=== PATIENT | female | born 1975 | race Caucasian/White ===

== ENCOUNTER 2017-07-07 06:53 | Day surgery (SDC) | payer OTHER ==
[2017-07-07] MEDS: NS 1,000 ML IV (07:00)
[2017-07-07] MEDS ORDERED: LIDOCAINE 2% INJ 100 MG/5 ML SDV (FOR ANES.) As Ordered (07:19)
[2017-07-07] MEDS ORDERED: PROPOFOL 200 MG/20 ML VIAL As Ordered ×2 (07:19)
== END 2017-07-07 08:44 | disposition home or self-care (01) ==
LOC: M OPP 06:53
DX: Z12.11 Encounter for screening for malignant neoplasm of colon (principal); Z80.0 Family history of malignant neoplasm of digestive organs; K64.0 First degree hemorrhoids; R12 Heartburn; K44.9 Diaphragmatic hernia without obstruction or gangrene; R01.1 Cardiac murmur, unspecified; F17.210 Nicotine dependence, cigarettes, uncomplicated; Z91.030 Bee allergy status
CPT/HCPCS: 45378

== ENCOUNTER 2018-12-20 16:30 | Emergency (ER) | payer OTHER ==
[~2018-12-20] VITALS: Ht 165.1 cm; Wt 70.9 kg
[~2018-12-20 16:30] MED LIST: MULT1TAB10 PO; VITA100067 PO; VITA500046 PO
[2018-12-20 17:29] LABS: BASO % 0.5 % (0.0-1.0); EOS % 0.2 % (0.0-3.0); HEMATOCRIT 39.5 % (36.0-47.0); HEMOGLOBIN 14.2 g/dl (12.0-15.5); LYMPH # 0.7 10^3/uL (1.5-4.5); LYMPH % 10.3 % (24.0-44.0); MEAN CORPUSCULAR HEMOGLOBIN 33.6 pg (27.0-33.0); MEAN CORPUSCULAR HGB CONC 35.9 g/dl (32.0-36.5); MEAN CORPUSCULAR VOLUME 93.4 fl (80.0-96.0); MONO # 0.5 10^3/uL (0.0-0.8); MONO % 7.1 % (0.0-5.0); NEUTROPHILS # 5.4 10^3/uL (1.8-7.7); NEUTROPHILS % 81.6 % (36.0-66.0); PLATELET COUNT, AUTOMATED 145 10^3/uL (150-450); RED BLOOD COUNT 4.23 10^6/uL (4.00-5.40); WHITE BLOOD COUNT 6.6 10^3/uL (4.0-10.0)
[2018-12-20 17:58] LABS: ALT/SGPT 32 U/L (12-78); BILIRUBIN,DIRECT 0.2 MG/DL (0.0-0.2); BILIRUBIN,TOTAL 0.9 MG/DL (0.2-1.0); BLOOD UREA NITROGEN 9 MG/DL (7-18); CALCIUM LEVEL 9.2 MG/DL (8.5-10.1); CARBON DIOXIDE LEVEL 28 MEQ/L (21-32); CHLORIDE LEVEL 105 MEQ/L (98-107); CREATININE FOR GFR 0.96 MG/DL (0.55-1.30); GLOMERULAR FILTRATION RATE > 60.0 (>58); GLUCOSE, FASTING 105 MG/DL (70-100); LIPASE 89 U/L (73-393); POTASSIUM SERUM 4.5 MEQ/L (3.5-5.1); SODIUM LEVEL 138 MEQ/L (136-145); TOTAL PROTEIN 7.2 GM/DL (6.4-8.2)
[2018-12-20] MEDS ORDERED: NS 1,000 ML IV ONE (18:00)
[2018-12-20] MEDS ORDERED: METOCLOPRAMIDE INJ 10MG/2ML VIAL (J2765) IV ONE (18:00)
[2018-12-20] MEDS ORDERED: KETOROLAC 30 MG/ML VIAL (J1885) IV ONE (18:00)
[2018-12-20] MEDS ORDERED: MACR100C43 PO (20:16)
[2018-12-20 20:30] VITALS: BP 112/69
[2018-12-20] MEDS ORDERED: NITROFURANTOIN (MACROBID) 100 MG CAP PO ONE (20:30)
--- NOTE | 2018-12-20 20:36 | REPVR ---
EXAM: US Pelvis Complete, Transabdominal EXAM DATE/TIME: 12/20/2018 7:30 PM CLINICAL HISTORY: 43 years old, female; Pelvic pain; Additional info: Suprapubic pain TECHNIQUE: Imaging protocol: Real-time transabdominal pelvic ultrasound with image documentation. Complete exam. COMPARISON: No relevant prior studies available. FINDINGS: Uterus/cervix: Endometrium measures approximately 6 mm in thickness and uniformly echogenic. Right adnexa: The right ovary measures 6 CM in length by 5 CM in thickness. There is a complex area of the right ovary which measures 3.7 CM by 4.1 CM by 2.7 CM. There are cystic areas and multiple septations and also low-level echoes. This may represent a complex hemorrhagic cyst. Other considerations would include endometrioma, cystadenoma and cystadenocarcinoma and I would recommend a followup ultrasound after 2-3 cycles to determine if this structure resolves. There is also a tiny exophytic cyst right adnexa. There is evidence of vascular flow the right ovary. Left adnexa: The left ovary measures 3.5 CM in length by 3 CM in thickness. There is a 1.6 CM follicular cysts of the left ovary. There is vascular flow of the left ovary with no evidence of torsion. Free fluid: There is no evidence of free fluid in the pelvis. Bladder: Normal appearing urinary bladder. IMPRESSION: 4 CM complex structure right ovary with both cystic areas, septations and low-level echoes. Considerations include hemorrhagic cyst, endometrioma, cystadenoma or cystadenocarcinoma. Recommend followup ultrasound after 2-3 cycles to determine if this resolves. Electronically signed by: Juni Huffman On 12/20/2018 20:36:33 PM
--- NOTE | 2018-12-21 13:09 | ED PDOC ---
Post-Departure Follow-Up pelvic us faxed to dr calabrese for fu Antonio Recinos MD Dec 21, 2018 13:09
== END 2018-12-20 20:34 | disposition home or self-care (01) ==
LOC: M ED 16:30
DX: N39.0 Urinary tract infection, site not specified (principal); R10.2 Pelvic and perineal pain; R50.9 Fever, unspecified; F17.200 Nicotine dependence, unspecified, uncomplicated; Z91.030 Bee allergy status
CPT/HCPCS: 36415; 76856; 80048; 80076; 81001; 83690; 85025; 87086; 93976; 96374; 96375; 99284; J1885; J2765

== ENCOUNTER → 2019-02-13 | Outpatient (CLI) | payer OTHER ==
[~2019-02-13] MED LIST changes: +MACR100C43 PO
--- NOTE | 2019-02-14 07:18 | REP ---
PELVIC ULTRASOUND: Real-time sonographic evaluation of pelvis performed utilizing transabdominal and endovaginal technique. Bladder measures 5.8 x 9.6 x 5.4 cm. The uterus measures 7.2 x 3.1 x 5.7 cm. Endometrial thickness is 5 mm. Right ovary measures 4.2 x 2.1 x 3.0 cm and left ovary 4.2 x 2.0 x 2.1 cm. A complex cystic structure in the right ovary, 2.9 x 1.8 x 3.1 cm has likely decreased in size when compared to the prior study of 12/20/2018, at which time maximum diameter was approximately 4 cm. The complex cystic structure in the left ovary measures 2.0 x 1.3 x 1.9 cm, likely representing a complex dominant follicle. There is no torsion of either ovary, RI right ovary 0.59 and left ovary 0.52. There are multiple nabothian cysts in the region of the cervix. IMPRESSION: Complex cystic structure right ovary appears to have decreased in size when compared to the prior study of 12/20/2018 from about 4 cm maximally to about 3 cm maximally. A complex cystic structure in the left ovary 2 cm maximally probably represents a dominant follicle. Electronically Signed by Nba Aguilar MD 02/15/2019 10:06 A
== END ==
LOC: M RAD 12:36
PROVIDERS: ATTEND Internal Medicine
DX: N83.201 Unspecified ovarian cyst, right side (principal)

== ENCOUNTER 2019-07-31 09:15 | Day surgery (SDC) | payer OTHER ==
[~2019-07-31] VITALS: Ht 165.1 cm; Wt 71.3 kg
[~2019-07-31 09:15] MED LIST changes: +NS 1,000 ML IV ONE; +OMEP-221 PO
[2019-07-31] MEDS ORDERED: LIDOCAINE 2% INJ 100 MG/5 ML SDV (FOR ANES.) As Ordered ONE (09:29)
[2019-07-31] MEDS ORDERED: propofoL 200 MG/20 ML VIAL As Ordered ONE (09:29)
[2019-07-31] MEDS ORDERED: fentaNYL 100 MCG/2 ML INJECTION (J3010) As Ordered ONE (10:07)
--- NOTE | 2019-07-31 10:50 | ROOR ---
Patient Name: Jessica Castro Procedure Date: 07/31/2019 10:29 AM Date of : 1975 Age: 44 Room: [facility] Gender: Female Note Status: Finalized Procedure: Upper Endoscopy + Biopsies Indications: Heartburn, Exclusion of Renee's esophagus, Surveillance for malignancy due to personal history of Renee's esophagus Providers: Chucky Lim MD Referring MD: Luz HATFIELD MD Requesting Provider: Medicines: Monitored Anesthesia Care Complications: No immediate complications. Procedure: Pre-Anesthesia Assessment: - The heart rate, respiratory rate, oxygen saturations, blood pressure, adequacy of pulmonary ventilation, and response to care were monitored throughout the procedure. The Endoscope was introduced through the mouth, and advanced to the second part of duodenum. The upper GI endoscopy was accomplished without difficulty. The patient tolerated the procedure well. Findings: The Z-line was variable and was found 35 cm from the incisors. Multiple biopsies were obtained with cold forceps for evaluation to rule out Renee's Esophagus randomly at the gastroesophageal junction. A small hiatal hernia was present. No other significant abnormalities were identified in a careful examination of the stomach. The exam of the duodenum was otherwise normal. Impression: - Z-line variable, 35 cm from the incisors. - Small hiatal hernia. - Multiple biopsies were obtained at the gastroesophageal junction. - The examination was otherwise normal. Recommendation: - Patient has a contact number available for emergencies. The signs and symptoms of potential delayed complications were discussed with the patient. Return to normal activities tomorrow. Written discharge instructions were provided to the patient. - High fiber diet. - Discharge patient to home. - Follow an antireflux regimen. - Continue present medications. - Await pathology results. - Telephone GI clinic for pathology results in 1 week. - Return to referring physician. - The findings and recommendations were discussed with the patient's family. Chucky Lim MD Chucky Lim MD 07/31/2019 10:50:21 AM Electronically signed by Chucky Lim MD Number of Addenda: 0 Note Initiated On: 07/31/2019 10:29 AM Estimated Blood Loss: Estimated blood loss: none.
[2019-07-31 11:10] VITALS: BP 112/65
== END 2019-07-31 11:18 | disposition home or self-care (01) ==
LOC: M OPP 09:15
PROVIDERS: ATTEND Internal Medicine Gastroenterology
DX: K22.8 Other specified diseases of esophagus (principal); K44.9 Diaphragmatic hernia without obstruction or gangrene; K22.70 Barrett's esophagus without dysplasia; R12 Heartburn; F17.210 Nicotine dependence, cigarettes, uncomplicated; Z80.0 Family history of malignant neoplasm of digestive organs; Z91.030 Bee allergy status
CPT/HCPCS: 43239; 88305; J3010

== ENCOUNTER → 2021-08-04 | Outpatient (REF) | payer OTHER ==
[~2021-08-04] MED LIST changes: -NS 1,000 ML IV ONE; -OMEP-221 PO; +OMEP40CA5 PO
== END ==
LOC: M LAB REF 22:46
PROVIDERS: ATTEND Physician Assistant Medical
DX: R30.0 Dysuria (principal)

== ENCOUNTER → 2024-09-07 | Outpatient (CLI) | payer OTHER ==
[~2024-09-07] MED LIST changes: +THERTAB52 PO; +VITA100093 PO
== END ==
LOC: M WUC 11:18
PROVIDERS: ATTEND Internal Medicine
DX: M79.644 Pain in right finger(s) (principal); M79.645 Pain in left finger(s)

== ENCOUNTER → 2025-01-05 | Outpatient (CLI) | payer OTHER ==
[2025-01-05 09:51] LABS: BASO # 0.0 10^3/uL (0.0-0.2); BASO % 0.6 % (0.0-1.0); EOS # 0.1 10^3/uL (0.0-0.5); EOS % 1.7 % (0.0-3.0); LYMPH # 1.7 10^3/uL (1.5-5.0); LYMPH % 35.6 % (24.0-44.0); MONO # 0.3 10^3/uL (0.0-0.8); MONO % 7.1 % (2.0-8.0); NEUTROPHILS # 2.5 10^3/uL (1.5-8.5); NEUTROPHILS % 54.8 % (36.0-66.0); PLATELET COUNT, AUTOMATED 184 10^3/uL (150-450)
[2025-01-05 10:19] LABS: IRON (FE) 102 UG/DL (50-170); PERCENT SATURATION 30.9 % (13.2-45.0)
[2025-01-05 10:20] LABS: ALT/SGPT 30 U/L (7.0-40); AST/SGOT 20 U/L (<34); CALCIUM LEVEL 9.1 MG/DL (8.5-10.1); CARBON DIOXIDE LEVEL 29 MMOL/L (20-31); CHLORIDE LEVEL 104 MMOL/L (98-107); CREATININE FOR GFR 0.79 MG/DL (0.55-1.30); FREE T4 1.35 NG/DL (0.89-1.76); GLOMERULAR FILTRATION RATE > 90.0 (>58); POTASSIUM SERUM 4.3 MMOL/L (3.5-5.1); SODIUM LEVEL 144 MMOL/L (136-145)
[2025-01-05 10:22] LABS: VITAMIN B12 LEVEL 606 PG/ML (211-911)
[2025-01-08 12:13] LABS: ZINC PLASMA 69 mcg/dL (60-130)
== END ==
LOC: M LAB 08:39
PROVIDERS: ATTEND Physician Assistant
DX: B35.3 Tinea pedis (principal); L60.3 Nail dystrophy; L30.1 Dyshidrosis [pompholyx]

== ENCOUNTER → 2025-05-26 | Outpatient (REF) | payer OTHER | LOC: M LAB REF 10:15 | DX: B34.9 Viral infection, unspecified (principal) ==